=== PATIENT | female | born 1935 | race Caucasian/White ===

== ENCOUNTER 2017-07-07 13:38 | Inpatient (IN) | payer MEDICARE ==
[~2017-07-07] VITALS: Ht 149.8 cm; Wt 44.3 kg
--- NOTE | ~2017-07-07 | CON ---
[place], [place] REPORT OF CONSULTATION NAME: GEORGINA HOOD UNIT #: [id number] ROOM: 422 DOCTOR: CHANG ELLSWORTH MDPRIMO BIRTHDATE: [birth year] DOS: 07/08/2017 PULMONARY CONSULTATION, EVALUATION AND MANAGEMENT CONSULTATION REQUESTED BY: Hospitalist Service. REASON FOR CONSULTATION: Assessment of hypoxia. HISTORY OF PRESENT ILLNESS: This is an 82-year-old white female patient, well known to me from the past. She has been admitted to the hospital on 07/07/2017 and was brought to the hospital, as she has been noted with significant auditory and visual hallucinations described for the past 3 days with changes in mental status. The patient has not been able to give any history at the present time. History obtained from the patient's granddaughter as well as review of the medical records of the patient that was completed by the current physicians and the nursing staff on this hospitalization. The patient has been brought to the hospital for the current assessment of the symptoms. She was also reported symptoms of cough, which has been noted recently with intermittent sputum expectoration was described. The patient has been noted with symptoms of shortness of breath, also noted severe hypoxia on this admission as well. The patient's code status was described as comfort care, but the family wished to continue with use of the BiPAP. This morning, as the patient was seen, she had been using the BiPAP. The patient's setting has been changed by me prior to the consultation I was called for the start of the BiPAP. She does not have arterial blood gases done. REVIEW OF SYSTEMS: Cannot be obtained since the patient is currently noted with change in mental status, unable to verbally communicate. PAST MEDICAL HISTORY: Has been reported with: 1. History of COPD. 2. Congestive heart failure, whether systolic or diastolic dysfunction unknown. 3. Essential hypertension. 4. Chronic hypoxic respiratory failure with use of oxygen at home. SOCIAL HISTORY: The patient recently . She has 2 children. She has reported history of tobacco use since teenager about a pack of cigarettes reported that was probably discontinued 20 years ago. There was no history of alcohol use or illicit drug use reported. FAMILY HISTORY: Reported both parents have been from complication related to heart attack. MEDICATIONS: From home were reported as use of ProAir HFA inhaler, Norvasc, atenolol, vitamin D, B12, enalapril, Flovent, Lasix, Vicodin, Levaquin, Synthroid, potassium chloride ____. DRUG ALLERGIES: THE PATIENT HAS REPORTED ALLERGY TO TRAMADOL. PHYSICAL EXAMINATION: [place], [place] REPORT OF CONSULTATION NAME: GEORGINA HOOD UNIT #: [id number] ROOM: 422 DOCTOR: PRIMO LOREDO MD BIRTHDATE: [birth year] GENERAL: This is an 82-year-old female, who has been currently noted with change in mental status without any acute distress at this time, on the BiPAP. The patient's height was recorded by the nursing staff as 4 foot 11 inches, weight of 97 pounds, BMI 19.7. VITAL SIGNS: Normal temperature noted since admission, respiratory rate 19-20, heart rate of 48-60 beats per minute, blood pressure 104/51 to 96/33, pulse oxygen saturation 50% oxygen previously noted, with Venturi mask saturation between 55-60%, on admission was noted with the patient on 6 liters as 99 percent saturation of oxygen. The intake for the patient was recorded as 180/300 mL. HEENT: Head was atraumatic. Eyes nonicterus. NECK: Supple. CARDIOVASCULAR: S1, S2 audible. LUNGS: The patient was noted with moderate decreased breath sounds in the lungs bilaterally for this patient as well. MUSCULOSKELETAL: The patient was noted without any acute deformities. VISIBLE SKIN: No lesions or rashes. CENTRAL NERVOUS SYSTEM: Change in mental status. Further examination could not be performed. LABORATORY DATA: The patient's CBC on 07/07/2017 with normal BUN and creatinine. Lactic acid 0.7 yesterday on admission. CBC yesterday on admission: BUN 52, creatinine 2.89. Albumin of 2.8. CT scan of the head for the patient that was done on admission yesterday noted without any acute intracranial abnormality. Influenza A and B nasal washing antigen were noted yesterday as negative. BUN and creatinine for the patient on 08/30/2016 noted BUN 19 at that time and creatinine 1.31. Chest x-ray that was done for the patient 2 view in the Emergency Room was personally reviewed, shows evidence of moderate infiltration noted with possibility of consideration of right lower lobe pneumonia, moderate size with small left pleural fluid as well. IMPRESSION: 1. The patient has been currently noted with hallucination and change in mental status, possibly related to aspiration pneumonia would be considered at the present time. 2. Bilateral pleural fluid from the acute pneumonia combination with possible congestive heart failure. 3. Severe acute hypoxic respiratory failure with noted chronic hypoxic respiratory failure, rule out hypercarbia causing change in mental status as well. 4. History of essential hypertension. 5. History of congestive heart failure reported previously as well with the possibility of current acute congestive heart failure has been considered. She does not have any recent echocardiogram performed to assess the left ventricular ejection fraction, the last echocardiogram was done in 2011. PLAN AND RECOMMENDATION: The patient is using BiPAP, currently used at a setting of 29/04. This has resulted in improvement in the oxygenation. Diuretic therapy. Continue the empirical use of antibiotic for the patient's acute aspiration pneumonia. Aspiration precaution would not be effective on the [place], [place] REPORT OF CONSULTATION NAME: GEORGINA HOOD UNIT #: [id number] ROOM: 422 DOCTOR: PRIMO LOREDO MD BIRTHDATE: [birth year] patient with the current change in mental status. Feeding is accepted by the patient and family member. NG tube should be inserted for the feeding purposes. I have also ordered the arterial blood gases of the patient at this time on the BiPAP to assess the current improvement in the oxygenation for the patient as well as to assess the ventilatory status to rule out acute hypercarbia with chronic hypercarbia causing change in mental status. Other supportive therapy and plan of management for the patient will be continued as in progress. Usual care with additional treatment changes will be made based on progression of the illness. Thank you for allowing me to participate in the care of this patient. PRIMO DOWNING MD CM:CONSTR:REPORT OF CONSULTATION [id number] 07/09/17 0510 interface
[~2017-07-07 13:38] MED LIST: ACCUNEB 0.0.63 MG/3; ATENOLOL25 MG PO; B-121000 MCG IM; CIPRO500 MG PO; DIOVAN160 MG PO; Flovent 220 M220 MCG; KEFLEX500 MG PO; KLOR-CON M2020 ME1 PO; KLOR-CON20 MEQ PO; LASIX40 MG PO; LEVAQUIN750 M1 PO; NORVASC5 MG PO; PREDNISONE50 MG PO; PROAIR HFA0.09 MG/AC IH; SYNTHROID,LEVO88 MCG PO; SYNTHROID0.088 MG PO; TRAMADOL HCL50 MG PO; VASOTEC20 MG PO; VICODIN 5/500 505 MG PO; VITAMIN D32000 IU PO; XANAX0.25 MG PO
[2017-07-07 13:49] VITALS: BP 127/43
[2017-07-07 14:03] LABS: BILIRUBIN NEGATIVE (NEGATIVE); BLOOD NEGATIVE (NEGATIVE); CLARITY CLEAR (CLEAR); COLOR YELLOW (YELLOW); GLUCOSE NEGATIVE (NEGATIVE); KETONE NEGATIVE (NEGATIVE); LEUKO ESTERASE TRACE (NEGATIVE); NITRITE NEGATIVE (NEGATIVE); UROBILINOGEN 0.2 E.U./dl (0.2-1.0)
[2017-07-07 14:18] LABS: HEMATOCRIT 34.6 % (37.0-47.0); HEMOGLOBIN 10.5 g/dl (12.0-16.0); MEAN CELL VOLUME 94.5 fl (81.0-99.0); MEAN CORPUSCULAR HGB 28.7 pg (27.0-31.0); MEAN CORPUSCULAR HGB CONC 30.3 g/dl (33.0-37.0); MEAN PLATELET VOLUME 9.7 fl (9.6-12.3); PLATELET COUNT AUTOMATED 335 10*3/uL (130-400); RED BLOOD COUNT 3.66 10*6/uL (4.10-5.10); RED CELL DISTRI WIDTH 15.1 % (0-14.5); WHITE BLOOD COUNT 8.5 10*3/uL (4.8-10.8)
[2017-07-07 14:25] LABS: BACTERIA TRACE; RBC 0-2 rbc/hpf (0-2)
[2017-07-07 14:35] LABS: ACT PARTIAL THROMBO TIME 28.9 SECONDS (20.8-31.5); INTERNATIONAL NORM RATIO 0.9 (2.0-3.5)
[2017-07-07 14:40] LABS: ATYPICAL LYMPHS 1 % (0-0); BASOPHILS 2 % (0-1); BURR CELLS FEW; PLATELET SUFFICIENCY NORMAL (NORMAL); TOTAL CELLS COUNTED 100 #CELLS
[2017-07-07 14:41] LABS: ALBUMIN 2.8 gm/dl (3.1-4.5); BUN 53 mg/dl (7-24); CHLORIDE 109 mmol/L (98-107); CREATININE 2.89 mg/dL (0.55-1.02); POTASSIUM 3.7 mmol/L (3.5-5.1); SGOT/AST 15 IU/L (3-35); SGPT/ALT 12 U/L (12-78); SODIUM 143 mmol/L (136-145); TOTAL PROTEIN 6.7 gm/dL (6.4-8.2)
[2017-07-07 14:43] LABS: ALKALINE PHOSPHATASE 77 U/L (45-117)
[2017-07-07 14:45] LABS: TROPONIN I < 0.015 ng/ml (<0.045)
[2017-07-07 14:57] VITALS: BP 108/40
[2017-07-07 15:44] VITALS: BP 101/38
[2017-07-07 18:05] VITALS: BP 133/44
[2017-07-07] MEDS ORDERED: REMERON15 M2 PO (18:36)
[2017-07-07 20:30] VITALS: BP 120/41
[2017-07-08] VITALS (7 sets, daily range): BP systolic 74–104; BP diastolic 25–84
[2017-07-08 15:56] LABS: ABG HCO3 23.7 mmol/l (22-26); ABG O2 SATURATION 82.6 % (95-97); ARTERIAL BLOOD GAS PO2 48.3 mmHg (80-90)
[2017-07-08 15:57] LABS: ABG BASE EXCESS -5.8 mmol/L (-2.0-2.0); ARTERIAL BLOOD GAS PCO2 70.7 mmHg (35-45)
[2017-07-08 16:01] LABS: ARTERIAL BLOOD GAS PH 7.148 (7.35-7.45)
[2017-07-09] VITALS: BP 84/42
== END 2017-07-09 01:30 | disposition expired | DRG 682 ==
LOC: ED 13:38 → EDHOLD 15:47 → 4E 16:59
PROVIDERS: Emergency Medicine; Internal Medicine Critical Care Medicine
DX: N17.0 Acute kidney failure with tubular necrosis (principal); J96.21 Acute and chronic respiratory failure with hypoxia; G93.41 Metabolic encephalopathy; I95.9 Hypotension, unspecified; J18.1 Lobar pneumonia, unspecified organism; E44.0 Moderate protein-calorie malnutrition; E87.2 Acidosis; T68.XXXA Hypothermia, initial encounter; J96.22 Acute and chronic respiratory failure with hypercapnia; I50.22 Chronic systolic (congestive) heart failure; J44.0 Chronic obstructive pulmonary disease with (acute) lower respiratory infection; I11.0 Hypertensive heart disease with heart failure; D64.9 Anemia, unspecified; D72.810 Lymphocytopenia; Z66 Do not resuscitate; Z51.5 Encounter for palliative care; E87.8 Other disorders of electrolyte and fluid balance, not elsewhere classified; Z99.81 Dependence on supplemental oxygen; F41.9 Anxiety disorder, unspecified; Z87.891 Personal history of nicotine dependence; Z79.52 Long term (current) use of systemic steroids; Z79.899 Other long term (current) drug therapy; Z88.8 Allergy status to other drugs, medicaments and biological substances; Z82.49 Family history of ischemic heart disease and other diseases of the circulatory system